=== PATIENT | male | born 1965 | race Caucasian/White ===

== ENCOUNTER 2023-04-20 06:52 | Outpatient (CLI) | payer OTHER ==
[~2023-04-20] VITALS: Ht 180.4 cm; Wt 103.0 kg
[2023-04-20] MEDS ORDERED: FISH12002 PO (13:54)
[2023-04-20] MEDS ORDERED: OMEG-145 PO (13:54)
[2023-04-20] MEDS ORDERED: ZINC50TA51 PO (13:54)
[2023-04-20] MEDS ORDERED: TUME1CAP PO (13:54)
== END 2023-04-20 14:40 | disposition home or self-care (01) ==
LOC: PREOP 06:52
PROVIDERS: ATTEND Otolaryngology Otolaryngology/Facial Plastic Surgery
DX: Z01.818 Encounter for other preprocedural examination (principal)

== ENCOUNTER 2023-04-27 08:08 | Day surgery (SDC) | payer OTHER ==
[~2023-04-27] VITALS: Ht 180 cm; Wt 103.0 kg
[2023-04-27] VITALS (12 sets, daily range): BP systolic 132–153; BP diastolic 84–98
[~2023-04-27 08:08] MED LIST: FISH12002 PO; OMEG-145 PO; TUME1CAP PO; ZINC50TA51 PO
[2023-04-27] MEDS ORDERED: LACTATED RINGERS 1,000 ML 1,000 ML IV PRN (08:45)
[2023-04-27] MEDS ORDERED: COCAINE 4% TOPICAL SOLN 2 ML SYR ONE (09:11)
[2023-04-27] MEDS ORDERED: LIDOCAINE/EPI 1%-1:200,000 (XYLOCAINE) 30 ML VIAL ONE (09:11)
[2023-04-27] MEDS ORDERED: PHENYLEPHRINE 0.5% (REGULAR) NASAL SPRAY 15 ML ONE (09:11)
[2023-04-27] MEDS ORDERED: dexAMETHasone INJ 10 MG/ML 1 ML VIAL ONE (09:25)
[2023-04-27] MEDS ORDERED: ONDANSETRON INJECTION 4 MG/2 ML (SDV) ONE (09:25)
[2023-04-27] MEDS ORDERED: MIDAZOLAM INJ 2 MG/2 ML VIAL ONE (09:25)
[2023-04-27] MEDS ORDERED: SEVOFLURANE (ULTANE) 15 ML INHAL SOLN ONE ×2 (09:25→10:42)
[2023-04-27] MEDS ORDERED: LIDOCAINE PF 2% 5 ML VIAL ONE (09:25)
[2023-04-27] MEDS ORDERED: ROCURONIUM 50 MG/5 ML VIAL IV ONE (09:25)
[2023-04-27] MEDS ORDERED: proPOfol INJECTION 200 MG/20 ML VIAL IV ONE (09:25)
[2023-04-27] MEDS ORDERED: fentaNYL INJECTION 100 MCG/2 ML VIAL ONE (09:25)
[2023-04-27 09:47] LABS: BASOPHILS # (AUTO) 0.1 10^3/uL (0.0-0.1); BASOPHILS % (AUTO) 1 % (0-10); EOSINOPHILS # (AUTO) 0.1 10^3/uL (0.0-0.3); EOSINOPHILS % (AUTO) 2 % (0-10); HEMATOCRIT 48 % (40-54); HEMOGLOBIN 16.2 g/dL (13.3-17.7); LYMPHOCYTES # (AUTO) 2.5 10^3/uL (1.0-4.0); LYMPHOCYTES % (AUTO) 27 % (12-44); MEAN CORPUSCULAR HEMOGLOBIN 33 pg (25-34); MEAN CORPUSCULAR HGB CONC 34 g/dL (32-36); MEAN CORPUSCULAR VOLUME 96 fL (80-99); MEAN PLATELET VOLUME 11.1 fL (9.0-12.2); MONOCYTES # (AUTO) 0.9 10^3/uL (0.0-1.0); MONOCYTES % (AUTO) 9 % (0-12); NEUTROPHILS # (AUTO) 5.7 10^3/uL (1.8-7.8); NEUTROPHILS % (AUTO) 61 % (42-75); PLATELET COUNT 249 10^3/uL (130-400); WHITE BLOOD COUNT 9.3 10^3/uL (4.3-11.0)
--- NOTE | 2023-04-27 10:04 | Progress Note-Pre Operative ---
Pre-Operative Progress Note Date of Available H&P: Apr 27, 2023 Date H&P Reviewed: Apr 27, 2023 Time H&P Reviewed: 09:45 History & Physical: H&P Reviewed, Patient Examed, No changes noted Changes from last HP none Pre-Operative Diagnosis: DEviated Nasal Septum, Bialt Hyper of INf Turbs NAILA KRUSE MD Apr 27, 2023 10:04
[2023-04-27 10:05] LABS: CALCIUM 9.2 MG/DL (8.5-10.1); CREATININE SERUM 1.02 MG/DL (0.60-1.30); POTASSIUM 4.6 MMOL/L (3.6-5.0)
--- NOTE | 2023-04-27 10:05 | Progress Note-Post Operative ---
Post-Operative Progess Note Surgeon (s)/Cnc Manufacturing Engineer (s) Surgeon NAILA KRUSE MD [employer] Manufacturing Engineer n/a Pre-Operative Diagnosis DEviated Nasal Septum, Bialt Hyper of INf Turbs Post-Operative Diagnosis same Post-Op Procedure Note Date of Procedure: Apr 27, 2023 Name of Procedure Performed: Nasal Septoplasty, Bilateral Partial REduction of hte INferior Turbinates Description & Findings Description and Findings: n/a Anesthesia Type get Estimated Blood Loss minimal Packing none. Specimen(s) collected/removed nasal septum NAILA KRUSE MD Apr 27, 2023 10:05
[2023-04-27] MEDS ORDERED: PROMETHAZINE INJ 25 MG/ML VIAL IVP PRN (10:15)
[2023-04-27] MEDS ORDERED: D5 1/2NS + KCL 20 MEQ/L 1000ML 1,000 ML IV SCH (10:15)
[2023-04-27] MEDS ORDERED: PHENYLEPHRINE 100 MCG/ML 10 ML (ANESTHESIA) SYR ONE (10:29)
[2023-04-27] MEDS ORDERED: HYDROmorphone INJECTION 2 MG/ML VIAL IV ONE (11:00)
[2023-04-27] MEDS ORDERED: ONDANSETRON INJECTION 4 MG/2 ML (SDV) IVP PRN (11:00)
[2023-04-27] MEDS ORDERED: HYDROmorphone INJECTION 2 MG/ML VIAL ONE (11:04)
--- NOTE | 2023-04-27 12:34 | Anesthesia-General Post-Op ---
General Patient Condition Mental Status/LOC: Same as Preop Cardiovascular: Satisfactory Nausea/Vomiting: Absent Respiratory: Satisfactory Pain: Controlled Complications: Absent Post Op Complications Complications None Follow Up Care/Instructions Patient Instructions None needed. Anesthesia/Patient Condition Patient Condition Patient is doing well, no complaints, stable vital signs, no apparent adverse anesthesia problems. No complications reported per nursing. D/C home per [facility] [place] Criteria: Yes SITA LAU CRNA Apr 27, 2023 12:34
[2023-04-27] MEDS ORDERED: TRM50T PO (12:38)
[2023-04-27] MEDS ORDERED: AMOX-355 PO (12:38)
== END 2023-04-27 14:20 | disposition home or self-care (01) ==
LOC: SDC 08:08
PROVIDERS: ATTEND Otolaryngology Otolaryngology/Facial Plastic Surgery
DX: J34.3 Hypertrophy of nasal turbinates (principal); J34.2 Deviated nasal septum; J98.8 Other specified respiratory disorders; F17.220 Nicotine dependence, chewing tobacco, uncomplicated
CPT/HCPCS: 36415; 80048; 85025; 87081